=== PATIENT | male | born 1990 | race Caucasian/White ===

== ENCOUNTER 2017-07-28 10:25 | Emergency (ER) | payer OTHER ==
[~2017-07-28] VITALS: Ht 175.3 cm; Wt 59.0 kg
[2017-07-28 10:25] VITALS: BP_SYST 112
[2017-07-28] MEDS ORDERED: fentaNYL CITRATE/PF 100 MCG/2 ML AMP IVP ONE (11:15)
[2017-07-28 13:06] VITALS: BP_SYST 112
== END 2017-07-28 13:06 | disposition home or self-care (01) ==
LOC: SED 10:25
DX: M54.5 Low back pain (principal); Z88.6 Allergy status to analgesic agent; W11.XXXA Fall on and from ladder, initial encounter; Y93.89 Activity, other specified; Y92.89 Other specified places as the place of occurrence of the external cause; Y99.8 Other external cause status
CPT/HCPCS: 72125; 72128; 72131; 72192; 96374; 99284; J3010

== ENCOUNTER 2018-03-10 20:54 | Emergency (ER) | payer MEDICAID, OTHER ==
[~2018-03-10] VITALS: Ht 175.3 cm; Wt 64.4 kg
[2018-03-10 21:00] VITALS: BP_SYST 122
[2018-03-10] MEDS ORDERED: MORPHINE 4 MG/ML INJ. SYRINGE IVP ONE (23:15)
[2018-03-10] MEDS ORDERED: ONDANSETRON HCL 4 MG/2 ML VIAL IVP ONE (23:30)
[2018-03-11 00:18] VITALS: BP_SYST 117
== END 2018-03-11 00:18 | disposition home or self-care (01) ==
LOC: SED 20:54
DX: S43.402A Unspecified sprain of left shoulder joint, initial encounter (principal); R03.0 Elevated blood-pressure reading, without diagnosis of hypertension; Z88.6 Allergy status to analgesic agent; X50.0XXA Overexertion from strenuous movement or load, initial encounter; Y93.89 Activity, other specified; Y92.89 Other specified places as the place of occurrence of the external cause; Y99.8 Other external cause status
CPT/HCPCS: 71045; 72125; 96374; 96375; 99284; J2270; J2405